=== PATIENT | male | born 1935 | race Two or more races ===

== ENCOUNTER 2017-03-23 12:35 | Emergency (ER) | payer OTHER, MEDICAID ==
[~2017-03-23] VITALS: Ht 170.2 cm; Wt 85.0 kg
[2017-03-23] MEDS ORDERED: LOVA20TA2 PO (12:40)
[2017-03-23] MEDS ORDERED: ATEN-42 PO (12:40)
[2017-03-23] MEDS ORDERED: LOSA25TA12 PO (12:40)
[2017-03-23] MEDS ORDERED: ACETAMINOPHEN 325MG TABLET PO STA (13:09)
[2017-03-23 15:01] VITALS: BP 150/60
[2017-03-23] MEDS ORDERED: ACETAMINOPHEN 160 MG/5 ML UD CUP ONE (17:22)
== END 2017-03-23 15:15 | disposition home or self-care (01) ==
LOC: ER 12:35
DX: S51.801A Unspecified open wound of right forearm, initial encounter (principal); I10 Essential (primary) hypertension; E11.9 Type 2 diabetes mellitus without complications; E78.00 Pure hypercholesterolemia, unspecified; I25.10 Atherosclerotic heart disease of native coronary artery without angina pectoris; R07.81 Pleurodynia; Z95.1 Presence of aortocoronary bypass graft; V49.88XA Car occupant (driver) (passenger) injured in other specified transport accidents, initial encounter; Y93.89 Activity, other specified; Y92.410 Unspecified street and highway as the place of occurrence of the external cause; Y99.8 Other external cause status
CPT/HCPCS: 71045; 73090; 73110; 99284